=== PATIENT | male | born 1995 | race Caucasian/White ===

== ENCOUNTER → 2017-11-15 | Emergency (ER) | payer OTHER, BC ==
[~2017-11-15] VITALS: Ht 172.7 cm; Wt 90.7 kg
[~2017-11-15] MED LIST: DOXYCYCLINE HY100 MG PO; KEFLEX500 MG PO; NORCO 5-325 TA1 EACH PO
== END ==
LOC: ED 02:48
PROC: 0HDQXZZ Extraction of Finger Nail, External Approach (ICD-10-PCS; principal; 2017-11-15)
DX: S62.634B Displaced fracture of distal phalanx of right ring finger, initial encounter for open fracture (principal); S61.314A Laceration without foreign body of right ring finger with damage to nail, initial encounter; W23.0XXA Caught, crushed, jammed, or pinched between moving objects, initial encounter
CPT/HCPCS: 11760; 73140; 96372; 99283; J0690